=== PATIENT | male | born 1950 | race Caucasian/White ===

== ENCOUNTER → 2017-09-30 | Outpatient (CLI) | payer MEDICARE, BC ==
--- NOTE | 2017-09-30 15:47 | CONS ---
CONSULTATION DATE OF SERVICE: 09/30/2017 67-year-old gentleman who has been evaluated in [facility] for obstructive sleep apnea-hypopnea syndrome. HISTORY OF PRESENT ILLNESS/SLEEP-WAKE EVALUATION: Recently patient had a home sleep apnea test done by another institution on 08/23/2017. Sleep test showed an 16 obstructive apneas, 2 central apneas and 85 hypopneas with a total apnea-hypopnea index 15.4 with oxygen desaturation to 79%. Oxygen level was below or equal to 88% for 14 minutes. Patient's usual sleep schedule from 9:30 or 10 p.m. to 4:00 or 4:15 a.m. No problems with falling asleep, although he watched TV in bedroom. He likes to sleep on the side position. He wakes up from sleep 2 times with 1 episode of nocturia. No history of hypnagogic hallucinations, sleep paralysis or cataplexy. [place] Sleepiness Scale is 4. PAST MEDICAL HISTORY: Positive for hypertension, diabetes, hyperlipidemia. PAST SURGICAL HISTORY: None. MEDICATIONS: Metoprolol, Januvia, enalapril, fenofibrate, Lipitor, glimepiride, metformin. SOCIAL HISTORY: Negative for smoking. Alcohol consumption positive in the past, totally stopped 4 years ago. REVIEW OF SYSTEMS: Sometimes awakenings from sleep, feeling tired during the day. FAMILY HISTORY: Hypertension, heart problems, hyperlipidemia, sleep apnea, snoring, diabetes, during the sleep. PHYSICAL EXAM: GENERAL gentleman without distress. VITAL SIGNS BP 125/69, HR 86, RR 16, height 5 feet 10 inches, weight 225, BMI 32.2, neck 16.5 inches in circumference. Temp is 98.3. Oxygen saturation on room air 95%. HEENT PERRLA, EOMI, evaluation of oropharynx showed low position of soft palate. Slight restriction of nasal breathing. NECK Supple, no JVD. Thyroid is not palpable. LUNGS Clear to percussion and to auscultation. Good air exchange. No wheezing or rhonchi. HEART S1, S2 regular. No murmurs, gallops, or rubs. ABDOMEN Obese. Soft and nontender. Bowel sounds are present. No organomegaly appreciated. EXTREMITIES No clubbing or cyanosis. CANDY SEPARATOR HARD Awake, alert, and oriented X3. Cranial nerves 2 to 7 intact. There is no fasciculation or atrophy. noted. No focal deficits observed. IMPRESSION: 1. Snoring, awakenings from sleep, low position of soft palate, wide neck, positive results of home sleep apnea test with apnea-hypopnea index 15.4 and oxygen desaturation of 79%. Obstructive sleep apnea-hypopnea syndrome. 2. Obesity, BMI 32.2. 3. Hypertension. 4. Diabetes mellitus. 5. Hyperlipidemia. PLAN: 1. CPAP titration for correction of respiratory abnormalities during sleep. 2. Losing weight. 3. Sleep hygiene with regular time in bed for 7-1/2 hours. 4. No driving if feeling any sleepiness. Thank you very much for referring this patient for consultation. MMODL / IJN: [id number] /
== END | disposition home or self-care (01) ==
LOC: SLEEP 14:25
PROVIDERS: ATTEND Internal Medicine
DX: G47.33 Obstructive sleep apnea (adult) (pediatric) (principal); M27.8 Other specified diseases of jaws; E66.9 Obesity, unspecified; I10 Essential (primary) hypertension; E11.9 Type 2 diabetes mellitus without complications; E78.5 Hyperlipidemia, unspecified; Z68.32 Body mass index [BMI] 32.0-32.9, adult; Z79.84 Long term (current) use of oral hypoglycemic drugs; Z79.899 Other long term (current) drug therapy
CPT/HCPCS: 99211

== ENCOUNTER → 2017-12-30 | Outpatient (CLI) | payer MEDICARE, BC ==
--- NOTE | 2017-12-30 14:11 | SFUN ---
SLEEP CENTER FOLLOW UP NOTE DATE OF SERVICE: 12/30/2017 67-year-old gentleman who has been followed in Sleep Center for treatment of obstructive sleep apnea-hypopnea syndrome. Recently patient had CPAP titration and received new CPAP unit. This is his first visit after starting to use new CPAP equipment. The patient is able to use equipment every night without problems related with mask, pressure or humidification. I checked his CPAP unit. Usage is 100% of the time more than 4 hours, average 5.4 hours. Pressure in the range between 5 and 12, most of the time pressure in the range of 8.6. Leak is average 13 L/minute which is perfect. Total apnea-hypopnea index for the left month's 2.5, which is perfect. [place] Sleepiness Scale today is 4, which is normal. MEDICATIONS: Metoprolol, Januvia, enalapril, fenofibrate, Lipitor, glimepiride, metformin. PHYSICAL EXAM: GENERAL Patient in no distress. VITAL SIGNS BP 116/74, HR 90, RR 16, weight 221.6, temp 97.3, oxygen saturation room air 96%. HEENT PERRLA, EOMI, evaluation of oropharynx showed low position of soft palate. NECK Supple, no JVD. Thyroid is not palpable. LUNGS Clear to percussion and to auscultation. Good air exchange. No wheezing or rhonchi. HEART S1, S2 regular. No murmurs, gallops, or rubs. ABDOMEN Slightly obese. Soft and nontender. Bowel sounds are present. No organomegaly appreciated. EXTREMITIES No clubbing or cyanosis. FLAT POLISHER Awake, alert, and oriented X3. Cranial nerves 2 to 7 intact. There is no fasciculation or atrophy. noted. No focal deficits observed. IMPRESSION: 1. Obstructive sleep apnea-hypopnea syndrome. Patient demonstrated great compliance with treatment benefitting from treatment. 2. Obesity. 3. Hypertension. 4. Diabetes mellitus. 5. Hyperlipidemia. PLAN: 1. Patient will continue to use his CPAP equipment every night for the whole night. 2. Watching and losing weight. 3. Sleep hygiene with regular time in bed for at least 8 hours. 4. No driving if feeling sleepiness. 5. We will follow with prescription for all necessary CPAP supplies including mask, tube, filters. Thank you very much for allowing me to participate in management of your patient. Sincerely, Jin Iraheta MD, PhD, FAASM Diplomat of [employer] Hall Tender of [facility] [place] MMARNULFO / CHANTAL: [id number] /
== END | disposition home or self-care (01) ==
LOC: SLEEP 12:55
PROVIDERS: ATTEND Internal Medicine
DX: G47.33 Obstructive sleep apnea (adult) (pediatric) (principal); E66.9 Obesity, unspecified; I10 Essential (primary) hypertension; E11.9 Type 2 diabetes mellitus without complications; E78.5 Hyperlipidemia, unspecified; Z79.899 Other long term (current) drug therapy; Z79.84 Long term (current) use of oral hypoglycemic drugs; Z99.89 Dependence on other enabling machines and devices

== ENCOUNTER → 2018-12-29 | Outpatient (CLI) | payer MEDICARE, BC ==
--- NOTE | 2018-12-29 12:18 | SFUN ---
SLEEP CENTER FOLLOW UP NOTE DATE OF SERVICE: 12/29/2018. A 68-year-old gentleman who has been followed in the Sleep Center for treatment of obstructive sleep apnea-hypopnea syndrome. Patient continued to use his CPAP equipment every night for the whole night. Feels that he has more energy than before. [place] Sleepiness Scale is 5. I checked his CPAP unit, range of the pressure of 5-13. Average pressure is 9 cm of water. Leak is 28/L per minute, which is borderline. Usage is every night and 28/30 nights for more than 4 hours with average 6.7 hours per night. Apnea-hypopnea index only 1.8, which is absolutely normal. MEDICATIONS: Metoprolol, Januvia, enalapril, fenofibrate, Lipitor, glimepiride, metformin. PHYSICAL EXAM: Patient in no distress. BP 95/58, HR 68, RR 16, height 5 foot 10 inches, weight 216 pounds. Body mass index 30.9, temperature 97.5, oxygen saturation at room air 96%. OROPHARYNX: Extremely low position of soft palate. Mallampati 4. ABDOMEN: Slightly obese. Neck Supple, no JVD. Thyroid is not palpable. LUNGS Clear to percussion and to auscultation. Good air exchange. No wheezing or rhonchi. HEART S1, S2 regular. No murmurs, gallops, or rubs. EXTREMITIES No clubbing or cyanosis. SCANNING CLERK Awake, alert, and oriented X3. Cranial nerves 2 to 7 intact. There is no fasciculation or atrophy. noted. No focal deficits observed. IMPRESSION: 1. Obstructive sleep apnea-hypopnea syndrome. Patient demonstrated great compliance with treatment benefitting from treatment. 2. Hypertension. 3. Obesity. 4. Diabetes mellitus. 5. Hyperlipidemia. PLAN: 1. Patient will continue to use CPAP equipment every night for the whole night. 2. Losing weight. 3. Sleep hygiene with regular time in bed for at least 8 hours. 4. No driving if feeling sleepiness. 5. I will maintain all necessary CPAP prescriptions for the mask, tube and filters. Thank you very much for allowing me to participate in the management of your patient. Sincerely, Jin Iraheta MD, PhD, FAASM Diplomat of [employer] Weed Cooking Operator of [facility] MMODL / IJN: [id number] /
== END | disposition home or self-care (01) ==
LOC: SLEEP 10:58
PROVIDERS: ATTEND Internal Medicine
DX: G47.33 Obstructive sleep apnea (adult) (pediatric) (principal); I10 Essential (primary) hypertension; E11.9 Type 2 diabetes mellitus without complications; E78.5 Hyperlipidemia, unspecified; E66.9 Obesity, unspecified; Z79.84 Long term (current) use of oral hypoglycemic drugs; Z79.899 Other long term (current) drug therapy; Z99.89 Dependence on other enabling machines and devices

== ENCOUNTER → 2021-12-10 | Outpatient (CLI) | payer MEDICARE, BC ==
--- NOTE | 2021-12-10 10:10 | XR ---
EXAMINATION TYPE: XR finger LT DATE OF EXAM: 12/10/2021 COMPARISON: NONE HISTORY: TECHNIQUE: Two views are submitted. FINDINGS: The osseous structures are intact. The joint spaces are preserved and there is no acute fracture or dislocation. IMPRESSION: 1. No definite acute fracture or dislocation if symptoms persist, follow-up study in 7 to 10 days wo uld be suggested
== END | disposition home or self-care (01) ==
LOC: RADXRYALE 09:52
PROVIDERS: ATTEND Physician Assistant
DX: S66.325A Laceration of extensor muscle, fascia and tendon of left ring finger at wrist and hand level, initial encounter (principal)